=== PATIENT | male | born 1965 | race Caucasian/White ===

== ENCOUNTER 2020-07-06 19:53 | Emergency (ER) | payer OTHER ==
[~2020-07-06] VITALS: Ht 175.3 cm; Wt 81.6 kg
[2020-07-06] MEDS ORDERED: VENTOLIN HFA18 GM INH (21:14)
[2020-07-06] MEDS ORDERED: LISINOPRIL-HCT1 EACH PO (21:14)
[2020-07-06] MEDS ORDERED: AZITHROMYCIN250 MG PO (23:52)
--- NOTE | 2020-07-07 22:22 | EKG ---
[facility] [address] [facility] [place], [place] [address] Signed Normal sinus rhythm Possible Left atrial enlargement Borderline ECG No previous ECGs available Confirmed by MARIA DE JESUS ODELL MD ([id number]) on 07/07/2020 10:21:57 PM Electronically Signed By: MARIA DE JESUS ODELL MD 07/07/202221 PATIENT NAME: MIKE PARSONS Electrocardiogram DATE OF : 63 PHYSICIAN: MARIA DE JESUS ODELL MD REPORT #: [id number] REPORT IS CONFIDENTIAL AND NOT TO BE RELEASED WITHOUT AUTHORIZATION
== END 2020-07-07 00:22 | disposition home or self-care (01) ==
LOC: ED 19:53
DX: U07.1 COVID-19 (principal); J12.82 Pneumonia due to coronavirus disease 2019; I10 Essential (primary) hypertension; Z88.2 Allergy status to sulfonamides; Z79.899 Other long term (current) drug therapy
CPT/HCPCS: 71045; 80053; 83605; 83880; 84484; 85025; 85379; 93005; 93010; 99284-25; J1100; U0003

== ENCOUNTER 2020-07-08 00:56 | Inpatient (IN) | payer OTHER ==
[~2020-07-08] VITALS: Ht 175.3 cm; Wt 86.5 kg
[~2020-07-08 00:56] MED LIST: AZITHROMYCIN250 MG PO; LISINOPRIL-HCT1 EACH PO; VENTOLIN HFA18 GM INH
--- OUTSIDE RECORDS SUMMARY | 2020-07-08 01:00 | XMS ---
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 Suzi has no Care Guidelines for this patient. Edwin VISIT COUNT (12 MO.) 2 [facility] [place] [facility]. TOTAL 2 NOTE: Visits indicate total known visits. ED/[facility] VISIT TRACKING (12 MO.) 07/08/2020 00:[address] [facility] [place] TYPE: Emergency COMPLAINT: - LOW OXYGEN LEVEL 07/06/2020 19:55 [facility] [place] TYPE: Emergency COMPLAINT: - SOB, RAPID HEART RATE,FEVER INPATIENT VISIT TRACKING (12 MO.) No inpatient visits to display in this time frame [email or web address]
--- NOTE | 2020-07-08 03:40 | NUR ---
THIS RN TO ER TO ADMIT pt. pt REPORTS "I JUST FEEL SHITTY" ABLE TO SPEAK IN COMPLETE SENTENCES ON 2L O2 VIA NC SATS MID 90'S. MOVED TO CCU VIA STRETCHER, SERGIO ACCOMPANIED. pt ABLE TO TRANSFER SELF TO CCU BED. ADMISSION COMPLETED. DIM LUNG SOUNDS IN BASES, CLEAR IN THE UPPERS. PROVIDED A WARM BLANKET. DISCUSSED PLAN OF CARE. DISCUSSED MEDICATIONS, STARTED REMDESIVIR INFUSION (SEE MAR). NO FURTHER REQUESTS AT THIS TIME. TO REMAIN AT BEDSIDE. CALL LIGHT WITHIN REACH.
--- NOTE | 2020-07-08 04:11 | NUR ---
IV SL. EMPTIED URINAL. NO FURTHER REQUESTS AT THIS TIME. AT BEDSIDE. CALL LIGHT WITHIN REACH.
--- NOTE | 2020-07-08 05:02 | NUR ---
15 BEATS OF SVT. IN TO ASSESS. pt REPORTED "I FEEL FINE, I JUST TOOK A DRINK OF COLD WATER." DENIES SOB AND CHEST PAIN AT THIS TIME. O2 SAT 94% ON 2L. HR NOW 88.
--- NOTE | 2020-07-08 07:05 | NUR ---
ROUNDED ON pt. RESTING IN BED WITH EYES CLOSED, RESPIRATIONS REGULAR AND UNLABORED. CALL LIGHT WITHIN REACH. AT BEDSIDE.
--- NOTE | 2020-07-08 08:30 | NUR ---
REPORT RECEIVED FROM NIGHT RN AND PT. CARE RESUMED. PT. DENIES PAIN. STATES THAT HE FEEL FATIGUED. CRACKLES PRESENT IN THE BASES OF LUNGS. TEMP. 99.7. PT. EDUCATED ABOUT THE PLAN OF CARE AND PRONING. AGREED TO TRY PRONING AN HOUR AFTER BREAKFAST. PT ON 2L OF 02 NC. O2 SAT. IS 93 %. AT BEDSIDE. PT. LEFT RESTING IN BED WITH CALL LIGHT IN REACH.
--- NOTE | 2020-07-08 09:15 | NUR ---
MORNING MEDS GIVEN. DISCUSSED PLAN OF CARE FOR THE DAY.
--- NOTE | 2020-07-08 11:21 | NUR ---
PATIENT ASSISTED TO PRONING POSITION. PT. VOIDED 325ML EARLENE URINE. PT. DENIES FURTHER NEEDS AND LEFT RESTING IN BED WITH AT BEDSIDE.
--- NOTE | 2020-07-08 13:00 | NUR ---
PATIENT ASSESSMENT COMPLETED. PT. VOIDED 225ML OF EARLENE CLEAR URINE. PT. DENIES PAIN AND TEMP. IS 99.5. PT. STATED HE IS SHORT OF BREATH AND FATIGUED . AMBULATED INDEPENDENTLY TO THE CHAIR. HEART RATE 100'S WHEN STANDING. PT. ON 2L OF O2 NC AND O2 SAT. LINENS CHANGED AND PT. LEFT EATING LUNCH WITH AT BEDSIDE.
--- NOTE | 2020-07-08 15:14 | NUR ---
PATIENT HR WAS 100-104. TEMP. 100.4. 500MG OF TYLENOL GIVEN. RT MAREK IN THE ROOM EDUCATING PT. ON IS/ACAPELLA. PT. LEFT RESTING IN CHAIR WITH CALL LIGHT IN REACH.
--- NOTE | 2020-07-08 16:21 | NUR ---
PATIENT ASSESSMENT COMPLETED. PT. TEMP. IS 98.3. PT. DENIES PAIN. GOWN CHANGED AND TEETH BRUSHED. REFUSES BATH. 0N 3L O2 NC AND SAT. IS 94%. IV SITE WNL AND FLUSHES WELL. CRACKLES STILL PRESENT IN LOWER LOBES BILAT. PT. STATES HE HAS LOST HIS APPETITE AND WANTS JUST AN ENSURE FOR DINNER. TASTE AND SMELL INTACT. PT. AMBULATED FROM CHAIR TO BED AND HR INCREASED TO 112. PT. LEFT RESTING IN BED WITH CALL LIGHT IN REACH.
--- NOTE | 2020-07-08 18:07 | NUR ---
PATIENT BROUGHT ENSURE FOR DINNER. DENIES PAIN. DISCUSSED PRONING AN HOUR AFTER DINNER AND PT. AGREED. PT. LEFT RESTING IN BED WITH CALL LIGHT IN REACH.
--- NOTE | 2020-07-08 19:35 | NUR ---
REPORT RECEIVED FROM DAY SHIFT RN. PT RESTING ON LEFT SIDE, EYES CLOSED, RESP EVEN AND UNLABORED.
--- NOTE | 2020-07-08 20:55 | NUR ---
IN TO DO ASSESSMENT, PT HAD JUST WOKE UP, STATES "I WAS FINALLY GETTING SOME GOOD SLEEP." LUNGS CLEAR, PT HAS FREQUENT PRODUCTIVE SOUNDING COUGH, ON 3L/O2/NC WITHSPO2 92-94% AND RR 14. USING IS AND ACAPELLA OCCASIONALLY ON HIS OWN PER INSTRUCTIONS GIVEN. PLAN OF CARE FOR THE NIGHT, INCLUDING NEXT DOSE OF REMDESIVIR WELL IMPORTANCE OF PRONING, PT AGREEALE. NO REQUESTS AT THIS TIME.
--- NOTE | 2020-07-08 21:43 | NUR ---
PT CALLS TO ASK FOR A BLANKET, NO OTHER REQUESTS.
--- NOTE | 2020-07-08 21:44 | NUR ---
PT LYING IN PRONE POSITION
--- NOTE | 2020-07-09 00:30 | NUR ---
PT RESTING WITH EYES CLOSED, RESP EVEN AND UNLABORED, LYIN ON RIGHT SIDE O2/3L IN PLACE SPO2 94%.
--- NOTE | 2020-07-09 02:32 | NUR ---
PT RESTING, RESP RATE 19, EVEN AND UNLABORED, LYING IN PRONE POSITION SPO2 94% ON 3L/NC
--- NOTE | 2020-07-09 04:05 | NUR ---
PT RESTING WITH EYES CLOSED, RESP EVEN AND UNLABORED. SPO2 94% ON 3L/NC.
--- NOTE | 2020-07-09 05:35 | NUR ---
IN TO DO LABS AND ASSESSMENT. NO REQUESTS.
--- NOTE | 2020-07-09 06:30 | NUR ---
REMDESIVIR COMPLETED AND PT AWAKE IN BED USING IS WITH COUGHING. DENIES NEEDS.
--- NOTE | 2020-07-09 07:15 | NUR ---
Report received, orders acknowledged. Patient sleeping in bed, respirations even and unlabored. SpO2 of 92% on 3LNC. Call light within reach.
--- NOTE | 2020-07-09 09:30 | NUR ---
Patient sitting up in bed, 3LNC in place with SpO2 of 92%. Vital signs taken, assessment complete. Patient up to chair independently, SOB noted with activity, SpO2 remains in the low 90's. Lung sounds coarse with crackles noted in the bases. Patient uses IS and acapella, which elicits coughing. No sputum noted. Breakfast delivered. Patient reports poor appetite and poor oral intake. Fluids encouraged. in room at bedside. Urinal emptied of 300 mls of urine. Patient denies pain. RT in room for assessment. POC for the day discussed, patient agreeable. Denies needs at this time, call light within reach.
--- NOTE | 2020-07-09 11:30 | NUR ---
Patient sleeping in bed in prone position, 3LNC in place. SpO2 of 96-98%. Patient denies needs at this time, requests to order lunch later in the afternoon. Call light within reach.
--- NOTE | 2020-07-09 13:15 | NUR ---
Patient sleeping in prone position with 3LNC in place, SpO2 of 96%. Patient rouses easily to voice. Vital signs taken, assessment complete. Patient sitting up at edge of bed with feet on floor. Lung sounds coarse with crackles in the bases. Patient uses the IS and acapella, performs deep breathing and coughing. Denies needs at this time, call light within reach.
--- NOTE | 2020-07-09 16:06 | NUR ---
Patient sitting up in chair on 3LNC, SpO2 in the low 90's. Patient using IS and acapella, cough elicited. Dinner orders placed. Patient denies needs at this time, call light within reach.
--- NOTE | 2020-07-09 17:30 | NUR ---
Patient sitting up in chair with 3LNC in place, SpO2 in the low 90's. Vital signs taken, assessment complete. Patient uses IS and acapella in chair, coughing elicited. Lung sounds clear in all lobes. Dinner delivered. Patient afebrile. Denies pain or SOB but does endorse fatigue. Denies needs, call light within reach.
--- NOTE | 2020-07-09 19:30 | NUR ---
PT RESTING ON SIDE, DENIES NEEDS AT THIS TIME. IN ROOM.
--- NOTE | 2020-07-09 20:15 | NUR ---
IN TO CHECK ON PT AND DO ASSESSMENT. PT DENIES NEEDS, HAS BEEN USING HIS IS. OCCASIONAL COUGHING. LUNGS MOSTLY CLEAR, FEW COARSE SOUNDS HEARD IN BASES. TO SPEND THE NIGHT.
--- NOTE | 2020-07-09 23:05 | NUR ---
IN TO CHECK ON PT, HAS JUST REPOSITIONED INTO PRONE POSITION. SPO2 HAS BEEN 92-94% ON 3L/NC. PT AND BOTH DENY NEEDS AT THIS TIME.
--- NOTE | 2020-07-10 04:24 | NUR ---
PT RESTING ON HIS SIDE, RESP EVEN AND UNLABORED.
--- NOTE | 2020-07-10 04:45 | NUR ---
IN TO DO ASSESSMENT, PT AWAKE IN BED, STATES HE WAS JUST HAVING A COUGHING FIT WITH DIFFICULTY BREATHING. ROBITUSSIN PRN GIVEN. LUNGS SOUND CLEAR, DIM IN BASES. SPO2 HAS BEEN A BIT LOWER, 90%, DROPPING DOWN TO 89% OCCASIONALLY, O2 TURNED UP TO 5L, SPO2 UP TO 92% WILL MONITOR. REMDESIVIR STARTED.
--- NOTE | 2020-07-10 06:30 | NUR ---
PT SITTING UP IN BED WITH IN ROOM
--- NOTE | 2020-07-10 08:03 | NUR ---
Spoke with Jacob by phone. He is in fine spirits, telling me [place]. He is on 5l02, taking remdisivir and dexamethasone. Plans on dc to home with his . Discussed possibility of dc with 02 if he cannot be weaned and what an 02 qualifier is.
--- NOTE | 2020-07-10 08:35 | NUR ---
IN PATIENT'S ROOM FOR VITALS, MEDS, ASSESSMENT. PT OVERALL STATES HE FEELS WORSE AND MORE FATIGUED TODAY. LUNG SOUNDS ARE CLEAR. PT IS ON 4 L NC ANDF SP02 IS 91%. PT USING HIS IS AND ACAPELLA WITH BEST EEFFORT OF IS AT 1250 ML. PT'S SERGIO REMAINS IN ROOM. PLAN OF CARE DISCUSSED WITH PATIENT. WILL SWITCH PT OVER TO A TELEMETRY TO GIVE HIM A LITTLE MORE INDEPENDENCE IN ROOM. CONTINUE TO MONITOR.
--- NOTE | 2020-07-10 10:47 | NUR ---
LUNCH ORDER COLLECTED FROM PATIENT AND HIS . PATIENT IS PLANNING ON PRONING NOW UNTIL LUNCH TIME. PT REPORTS HE STILL DOESN'T FEEL GREAT, AND ISN'T VERY HUNGRY, BUT WILLING TO EAT A LITTLE BIT. PT REMAINS ON 4 L NC.
--- NOTE | 2020-07-10 11:33 | NUR ---
PATIENT PRONING AT THIS TIME, AND HAS BEEN SINCE 1045. SP02 IS CURRENTLY 95% ON 4 L NC. CONTINUE TO MONITOR.
--- NOTE | 2020-07-10 14:27 | NUR ---
DUE TO PRECAUTIONS, I AM UNABLE TO VISIT PT IN PERSON. WILL CHECK BACK AGAIN
--- NOTE | 2020-07-10 17:00 | NUR ---
IN PATIENT'S ROOM FOR ASSESSMENT, VITALS, DINNER. PT UP TO CHAIR AND BED LINENS CHANGED. PT ABLE TO GIVE HIMSELF A BATH WITH THE HELP OF HIS . PATIENT STATES HE FEELS BETTER OVERALL.
--- NOTE | 2020-07-10 20:15 | NUR ---
IN TO CHECK ON PT AND DO ASSESSMENT, NO NEEDS AT THIS TIME. DISCUSSED PLAN FOR THE NIGHT INCLUDING PRONING, USING IS AND NEXT DOSE OF REMDESIVIR IN THE MORNING. QUESTIONS ANSWERED, REAMAIINS IN ROOM. LUNGS SOUND CLEAR WITH VERY SLIGHT CRACKLES HEARD IN BASES. PT REPORTS FEELING SOB AT TIMES STILL BUT AT THIS TIME FEELS OKAY.
--- NOTE | 2020-07-10 23:50 | NUR ---
IN TO CHECK ON PT, PT IN PRONE POSITION, EYES CLOSED, RESP EVEN AND UNLABORED. SPO2 96% ON 3L/NC
--- NOTE | 2020-07-11 02:00 | NUR ---
PT RESTING WITH EYES CLOSED, RESP EVEN AND UNLABORED. SPO2 95-97% ON 4L/NC.
--- NOTE | 2020-07-11 03:00 | NUR ---
IN TO CHECK ON PT, PT AWAKE AND JUST GOT UP TO BR. NO NEEDS AT THIS TIME, HAS BEEN USING IS AND PRONING.
--- NOTE | 2020-07-11 06:45 | NUR ---
IN TO START REMDESIVIR, PT WAS SLEEPING, AWAKENS EASILY. OXYGEN HAS BEEN AT 3L/NC, SPO2 94%, NO C/O AT THIS TIME.
--- NOTE | 2020-07-11 08:45 | NUR ---
Update from home health care physician and Dr Emanuel during 829 report. Pt cont. on 3l 02 doing well.
--- NOTE | 2020-07-11 09:19 | NUR ---
RESTING AFTER TAKING BREAKFAST. IS IN ROOM. PATIENT C/O FEELING SHORT OF BREATH. SOMEWHAT DISCOURAGED REGARDING [facility] PROGRESS. TALKED WITH PATIENT ABOUT POC FOR DAY.
--- NOTE | 2020-07-11 10:30 | NUR ---
SPONGE BATH GIVEN, THEN TO CHAIR. STATES BREATHING IS A LITTLE BETTER AT THIS TIME. REMAINS ON O2 AT 3 L NC.
--- NOTE | 2020-07-11 10:40 | NUR ---
DR. CALVERT HERE TO SEE PATIENT, PATIENT REMAINS IN CHAIR.
--- NOTE | 2020-07-11 11:00 | NUR ---
PATIENT UP IN ROOM ABMULATING WITH O2 ON. HR 90'S, O2 SAT 92. THENN BACK TO CHAIR.
--- NOTE | 2020-07-11 12:48 | NUR ---
MED REC COMPLETE
--- NOTE | 2020-07-11 13:31 | NUR ---
PT ON PRECAUTIONS, WILL BE AVAILABLE NEEDED
--- NOTE | 2020-07-11 16:10 | NUR ---
AWAKE, SITTING IN CHAIR, ASSESSMET DONE.
--- NOTE | 2020-07-11 18:22 | NUR ---
TOOK DINNER WELL. SITTING IN CHAIR. DENIES PAIN. REMAINS IN ROOM.
--- NOTE | 2020-07-11 19:18 | NUR ---
NO CHANGES, REPORT TO NEXT SHIFT.
--- NOTE | 2020-07-11 19:20 | NUR ---
RECEIVED REPORT FROM IDA. pt RESTING IN BED, AT BEDSIDE. NO REQUESTS AT THIS TIME.
--- NOTE | 2020-07-11 20:20 | NUR ---
pt MOVED FROM CCU ROOM TO ROOM 118. REMAINS AT BEDSIDE. pt INDEPENDENT IN ROOM. ASSESSMENT DONE. pt ON 3L O2 TO MAINTAIN SATS. DENIES NEED FOR PRN MEDICATIONS AT THIS TIME. DISCUSSED PRONING. NO REQUESTS AT THIS TIME. CALL LIGHT WITHIN REACH.
--- NOTE | 2020-07-12 | NUR ---
O2 SAT 95%, HR 61 PER TELE 3.
--- NOTE | 2020-07-12 03:01 | NUR ---
O2 SAT 97%, HR 54 PER TELE.
--- NOTE | 2020-07-12 06:01 | NUR ---
IN TO DO ASSESSMENT. pt WOKE TO NOISE. ALERT AND ORIENTED. REPORTED VOIDING X3 REPORTED FEELING SHORT OF BREATH WHEN AMBULATING "IT'S GETTING BETTER ALL THE TIME" INDEPENDENT IN ROOM. ON 3L HUMIDIFIED O2 VIA NC. REMDESIVIR INFUSING PER ORDERS (SEE MAR). LABS DRAWN. ASSESSMENT DONE. VITALS AND I&O RECORDED. AT BEDSIDE. NO REQUESTS AT THIS TIME. CALL LIGHT WITHIN REACH.
--- NOTE | 2020-07-12 06:15 | NUR ---
pt RESTED MOST OF SHIFT. ON 3L O2 VIA HUMIDIFIED NC. pt REPORTED SOB WHEN AMBULATING TO VOID BUT STATED IT WAS IMPROVING. INDEPENDENT IN ROOM. POOR APPETITE BUT INTERESTED IN BREAKFAST. ON TELE 3 FOR O2 SAT MONITORING. LAST DOSE OF REMDESIVIR ADMINISTERED. USES CALL LIGHT APPROPRIATELY. , SERGIO, AT BEDSIDE.
--- NOTE | 2020-07-12 07:10 | NUR ---
SHIFT REPORT FROM MARIELY TATE INCLUDED: Pt is anticipating DC today. Pt on 2L NC and maintaining sats >94%. Pt denies pain and nausea throughout last few shifts. Pt is pretty independent in the room and also has his fully independent at his bedside in the room. Pt currently lying in bed, eyes closed, breathing even and unlabored, 2L NC, table and call light within reach.
--- NOTE | 2020-07-12 09:30 | NUR ---
ASSESSMENT + MED PASS Pt reports feeling a lot better today. Pt assessment complete, VSS. Pt able to take meds without difficulty. Pt denies pain and nausea at this time. Pt in bed, table and call light within reach.
--- NOTE | 2020-07-12 10:30 | NUR ---
ROUNDING Pt in bed, sitting up, working on his computer. Breathing even and unlabored. Pt denies needs at this time. Pt in bed, table and call light within reach, at bedside. Pts o2sat 96% on 2L NC.
[2020-07-12] MEDS ORDERED: DEXAMETHASONE6 MG PO (10:41)
--- NOTE | 2020-07-12 11:30 | NUR ---
ROUNDING Pt in bed, visiting with . Pt denies needs at this time. Pt DC order in and paperwork being completed now. Table and call light within reach.
--- NOTE | 2020-07-12 12:10 | NUR ---
DISCHARGE Pt and verbalized understanding of DC instructions, meds, and follow up plans. Pts IV removed WNL, catheter intact, no excess bleeding noted. Pt taken out to wifes care in wheelchair. Pt was alert and oriented x4, breathing even and unlabored, steady gait.
== END 2020-07-12 12:15 | disposition home or self-care (01) | DRG 177 ==
LOC: ED 00:56 → CCU 00:59 → MS 07-11 20:30
PROVIDERS: ADMIT Internal Medicine; ATTEND Internal Medicine
DX: U07.1 COVID-19 (principal); J12.82 Pneumonia due to coronavirus disease 2019; J96.01 Acute respiratory failure with hypoxia; I10 Essential (primary) hypertension; R53.82 Chronic fatigue, unspecified; E87.6 Hypokalemia; D69.6 Thrombocytopenia, unspecified; Z79.899 Other long term (current) drug therapy; Z88.2 Allergy status to sulfonamides
CPT/HCPCS: 71045; 80053; 83735; 85025; 94667; 94668; 94760; 94761; 96374; 96375; 99285-25; G0378; J1100; J1650; J7050; J8540

== ENCOUNTER 2021-06-30 02:33 | Emergency (ER) | payer OTHER ==
[~2021-06-30] VITALS: Ht 175.3 cm; Wt 86.2 kg
[~2021-06-30 02:33] MED LIST changes: +DEXAMETHASONE6 MG PO
[2021-06-30] MEDS ORDERED: LISINOPRIL-HCT1 EACH PO (02:45)
[2021-06-30] MEDS ORDERED: PERCOCET 5-3251 EACH PO (04:36)
== END 2021-06-30 05:13 | disposition home or self-care (01) ==
LOC: ED 02:33
DX: N20.0 Calculus of kidney (principal); I10 Essential (primary) hypertension; Z88.2 Allergy status to sulfonamides; Z79.899 Other long term (current) drug therapy
CPT/HCPCS: 74176; 81001; 85025; 96374; 99284-25; J1885